=== PATIENT | male | born 1950 | race Caucasian/White ===

== ENCOUNTER → 2018-02-17 | Outpatient (CLI) | payer OTHER | LOC: ULTRA 12:53 | DX: E04.2 Nontoxic multinodular goiter (principal); R10.32 Left lower quadrant pain ==

== ENCOUNTER → 2018-11-03 | Outpatient (CLI) | payer OTHER | LOC: ULTRA 08:41 | DX: E04.2 Nontoxic multinodular goiter (principal) ==

== ENCOUNTER → 2018-11-17 | Outpatient (CLI) | payer OTHER ==
[~2018-11-17] VITALS: Ht 177.8 cm; Wt 94.3 kg
[~2018-11-17] MED LIST: CRESTOR10 MG PO; LISINOPRIL20 MG PO; ZOLPIDEM TARTRA10 MG PO
--- NOTE | 2018-11-17 11:47 | P ---
[facility] [place] [address] PROCEDURE REPORT Name: LINDSEY BACON Room #: REG [facility]#: [id number] Admission: 11/17/18 ������������������ Attend Phys: Alexandro Tom MD Discharge: ������������������ Date of : 46 Report #: [id number] THIS REPORT FOR: //name// CC: Alexandro Velasquez MD DATE OF SERVICE: 11/17/2018 OUTPATIENT COLONOSCOPY REPORT BRIEF HISTORY: The patient is a 68-year-old male with a recent finding of a positive Cologuard test. He also has had a history of colon polyps. PREOPERATIVE DIAGNOSES: Positive Cologuard and history of colon polyps. POSTOPERATIVE DIAGNOSES: 1. A 4-5 mm flat polyp, 70 cm. 2. Moderate diverticulosis coli, greater left colon than right colon. 3. Small internal hemorrhoids. MEDICATIONS: Deep sedation with propofol per anesthesia. SPECIMEN: Polyp from 70 cm. ESTIMATED BLOOD LOSS: 3 mL. PROCEDURE: Colonoscopy to cecum and terminal ileum with snare polypectomy. FINDINGS: Prior to propofol sedation, the procedure of colonoscopy was discussed with the patient as well as potential risks and its complications. He indicates he understands and desires to proceed. DESCRIPTION OF PROCEDURE: With the patient in left lateral decubitus position, digital examination was completed, which revealed no abnormalities. Subsequently, the Olympus video colonoscope was introduced in the rectum, advanced under direct vision to the cecum, done with minimal difficulty. The cecum was identified by the ileocecal valve and the appendiceal orifice. I was able to visualize the distal segment of the terminal ileum, which was inspected and noted to be unremarkable. At that point, the scope was slowly withdrawn and careful circumferential views obtained including retroflexion of the scope in the ascending colon. Upon slow withdrawal of the scope, the prep was good. The mucosa was within normal limits, normal vascular pattern, normal light reflex. As we withdrew the scope, the mucosa was inspected and mucosa was within normal limits. There were scattered diverticula in the proximal colon, but no endoscopic evidence of diverticulitis. As we withdrew the scope, no other [facility] [address] [place] [address] PROCEDURE REPORT Name: LINDSEY BACON Room #: REG [facility].#: [id number] Admission: 11/17/18 ������������������ Attend Phys: Alexandro Tom MD Discharge: ������������������ Date of : 46 Report #: [id number] abnormalities were noted until about 70 cm, at which point a 4-5 mm flat polyp was removed by cold snare polypectomy and recovered. The scope was further withdrawn and no additional neoplastic lesions were seen during the remainder of this exam. In the left colon, in particular the sigmoid colon, there was moderately severe diverticular disease without endoscopic evidence of diverticulitis. The scope was withdrawn in the rectum and upon retroflexion, small hemorrhoids were seen. There was no evidence of bleeding. It was noted no bleeding lesions were seen during this exam. The scope was withdrawn. The patient tolerated the procedure well. CONDITION OF THE PATIENT UPON DISCHARGE: Following the procedure, the patient was drowsy, aroused, conversant and will be discharged home when fully ambulatory. INSTRUCTIONS TO THE PATIENT AND FAMILY AT THE TIME OF DISCHARGE: One small polyp identified and removed as described above. We will follow up on the pathology and make further recommendations. If this is an adenoma, he should return in 5 years; if it is not an adenoma, then 10 years would be indicated. Last colonoscopy was approximately 5 years ago. Withdrawal time from the cecum was 13 minutes 57 seconds. ��������������������������������������������� <ELECTRONICALLY SIGNED> ���������������������������������������� By: Alexandro Tom MD ��������������������������������������������� 11/17/18 1147 [id number] 0900 Alexandro Tom MD /nt
--- NOTE | 2018-11-19 16:05 | PATH ---
[facility] [address] [place] [address] PATHOLOGY RPT PROCEDURE Name: ARLEENLINDSEY Jarvis Room #: REG [facility] [place].#: [id number] ������������������ Admission: 11/17/18 ������������������ Date of : 46 Discharge: Report #: [id number] Path Case #: [id number] [facility] Accession Number: [id number] . 01 Material submitted: . colon - POLYP AT 70CM . 01 Clinical history: . Pre-op diagnosis: History of colon polyps Post-op diagnosis: Colon polyp, diverticulosis, small hemorrhoid . 02 Diagnosis: Polyp at 70 cm, endoscopic biopsy: - Tubular adenoma. - Negative for high-grade dysplasia. 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 02 Electronically signed: . Lula Guy MD, Pathologist NPI- [id number] . 01 Gross description: . The specimen is received in formalin, labeled "Lindsey Pepperell, polyp at 70 cm". Received is a segment of pale stevenson soft tissue measuring 0.6 cm in maximum dimensions. The specimen is submitted entirely in cassette A1. (CAA; 11/18/2018) QAC/QAC . 02 Pathologist provided ICD-10: D12.6, Z86.010 . 02 CPT . 389330 Specimen Comment: A courtesy copy of this report has been sent to Specimen Comment: [phone]. Specimen Comment: Report sent to Performed at: [address], [place] [id number] MD Ajay Mg MD Phone: [phone] Performed at: [address] [id number] MD Lula Guy MD Phone: [phone]
== END | disposition home or self-care (01) ==
LOC: GI 06:33
DX: D12.4 Benign neoplasm of descending colon (principal); K57.30 Diverticulosis of large intestine without perforation or abscess without bleeding; K64.8 Other hemorrhoids; I10 Essential (primary) hypertension; E78.5 Hyperlipidemia, unspecified; Z85.828 Personal history of other malignant neoplasm of skin; Z86.010 Personal history of colon polyps; Z98.890 Other specified postprocedural states; Z79.899 Other long term (current) drug therapy; Z87.01 Personal history of pneumonia (recurrent)
CPT/HCPCS: 62110; 62900